=== PATIENT | female | born 2005 | race Two or more races ===

== ENCOUNTER 2025-09-15 05:25 | Emergency (ER) | payer MEDICAID, SELFPAY ==
[2025-09-15 05:26] VITALS: BMI 28.3
--- NOTE | 2025-09-15 05:32 | PD.EDRME ---
Rapid Medical Screening Exam RME Arrival date/time: 09/15/25 05:25 Chief Complaint: Abdominal Pain RME Narrative: Vaginal spotting, pelvic cramping that initiated yesterday. LMP end of June. Exam: Well-appearing, no acute distress, abdomen non-tender Clinical Impression: Vaginal bleeding in
[2025-09-15 05:36] VITALS: BP 122/83; PULSE 79; RESP 16; TEMP 36.7; O2SAT 98
[2025-09-15 06:15] LABS: Collection Type, Urine Clean Catch
[2025-09-15 06:22] LABS: Basophils # (Auto) 0.0 Thou/mm3 (0.0-0.2); Basophils % (Auto) 1 % (0-2.5); Eosinophils # (Auto) 0.1 Thou/mm3 (0.0-0.5); Eosinophils % (Auto) 2 % (0-10); Hematocrit 32.4 % (36.0-46.0); Hemoglobin 10.8 g/dL (12.0-16.0); Immature Granulocytes Auto 0.01 Thou/mm3 (0.00-0.00); Lymphocytes # (Auto) 2.6 Thou/mm3 (1.0-4.8); Lymphocytes % (Auto) 38 % (10-50); Mean Corpuscular HGB Conc 33.3 g/dl (31.0-37.0); Mean Corpuscular Hemoglobin 28.6 pg (25.0-35.0); Mean Corpuscular Volume 86 fL (80-100); Monocytes # (Auto) 0.6 Thou/mm3 (0.0-0.8); Monocytes % (Auto) 9 % (0-12); Neutrophils # (Auto) 3.5 Thou/mm3 (1.8-7.7); Neutrophils % (Auto) 51 % (37-80); Nucleated Red Blood Cell # 0.00 Thou/mm3 (0.00-0.00); Nucleated Red Blood Cell % 0 /100 WBC (0); Platelet Count 270 Thou/mm3 (140-440); RDW Standard Deviation 41.5 fL (36.4-46.3); Red Blood Count 3.77 Miln/mm3 (4.00-5.20); White Blood Count 6.9 Thou/mm3 (3.6-11.0)
[2025-09-15 06:24] LABS: Bilirubin,Urine Negative (Negative); Blood,Urine Trace (Negative); Clarity,Urine Clear (Clear/Hazy); Color,Urine Lt-Yellow (Lt Yel-Yel); Glucose, Urine Negative (Negative); Ketones,Urine Negative (Negative); Leukocyte Esterase,Urine Negative (Negative); Nitrite,Urine Negative (Negative); PH,Urine 6.5 (5.0-7.0); Protein,Urine Negative (Neg - Trace); RBC,Urine 30 /hpf (0-3); Specific Gravity,Urine 1.023 (1.001-1.035); Squamous Epithelial Cell,Urine 1 /hpf (0-5); Urobilinogen,Urine Negative mg/dL (0.0-1.0); WBC,Urine 3 /hpf (0-5)
[2025-09-15 06:42] LABS: Alanine Aminotransferase 10 U/L (10-49); Albumin, Serum 4.3 gm/dL (3.5-5.0); Albumin/Globulin Ratio 1.7 (1.2-2.2); Alkaline Phosphatase 69 U/L (46-116); Anion Gap 8 (7-16); Aspartate Amino Transferase 14 U/L (0-34); BUN/Creatinine Ratio 12 Ratio (12-20); Bilirubin,Total 0.7 mg/dL (0.3-1.2); Blood Urea Nitrogen 7 mg/dL (9-23); Calcium 9.1 mg/dL (8.3-10.6); Calcium (Corrected) 9.1 mg/dL (8.5-10.1); Carbon Dioxide 24.0 mMol/L (20.0-31.0); Chloride 108 mMol/L (98-107); Creatinine (Component) 0.6 mg/dL (0.6-1.3); Estimated Creatinine Clearance 146.9 mL/min (>60); Globulin 2.5 gm/dL (2.3-3.5); Glucose 88 mg/dL (74-106); Osmolality,Calculated 276 (275-295); Potassium 4.2 mMol/L (3.4-5.1); Sodium 140 mMol/L (136-145); Total Protein 6.8 gm/dL (5.7-8.2); eGFR > 60 See Note
--- NOTE | 2025-09-15 07:37 | XR_ITS ---
Examination: Complete OB ultrasound, less than 14 weeks, transabdominal Date and time of exam: September 15, 2025, 0736 hours INDICATIONS: Pelvic cramping vaginal bleeding beginning 2 days ago, no care. Technique: Obstetrical ultrasound images less than 14 weeks performed via transabdominal imaging Findings: A normal shaped single intrauterine gestation is present in the uterus. CRL 0.6 cm corresponds to 6 weeks 3 days gestational age Cardiac motion 115 bpm Ultrasonographic survey of visible and placental structures unremarkable. Amniotic fluid volume appears appropriate for this estimated gestational age. Right ovary 3.8 cm arterial flow. Left ovary 2.1 cm arterial flow No fluid in the cul-de-sac IMPRESSION: Viable intrauterine gestation 6 weeks 3 days.
--- NOTE | 2025-09-15 08:03 | EDNOTE_ITS ---
<Statement entered by Jacki Minor MD - 09/19/25 16:25> As co-signing physician, I was present and available for consult prn. I concur with the plan and care as documented by the midlevel provider. ED Abdominal Pain RME/HPI General Chief Complaint: Abdominal Pain Stated complaint: POSITIVE TEST, CRAMPING Time seen by provider: 09/15/25 07:04 Arrival date/time: 09/15/25 05:25 20-year-old female G2, P1 presents to the emergency department today for complaint of vaginal spotting ongoing x 2 days patient worse no fever nausea vomiting no headache dizziness weakness. Limitations: no limitations RME / HPI RME / HPI narrative: Vaginal spotting, pelvic cramping that initiated yesterday. LMP end of June. Exam: Well-appearing, no acute distress, abdomen non-tender Impression: Vaginal bleeding in Related Data Previous Rx's ?Medication ?Instructions ?Recorded acetaminophen 500 mg tablet 500 mg PO Q6H PRN pain #30 tabs 03/06/21 (Tylenol Extra Strength) ondansetron 4 mg disintegrating 4 mg PO Q12H PRN nause a and 03/06/21 tablet vomiting #14 tabs ondansetron 4 mg disintegrating 4 mg PO Q12H #10 tabs 12/13/21 tablet pantoprazole 20 mg tablet,delayed 20 mg PO QDAY #14 ta bs 12/13/21 release (Protonix) hydrocodone 5 mg-acetaminophen 325 1 tab PO TID #10 ta bs 03/15/23 mg tablet Allergies Allergy/AdvReac Type Severity Reaction Status Date / Time No Known Allergies Allergy Verified 07/20/24 18:45 Review of Systems Review of Systems Systems Reviewed: All systems reviewed, normal except as documented Constitutional Constitutional: Reports system reviewed and no additional complaints, except as documented, Denies fever(s) and Denies headache(s) Eyes Eyes: Reports system reviewed and no additional complaints, except as documented and Denies blurry vision ENT Ears, Nose, Mouth, and Throat: Reports system reviewed and no additional complaints, except as documented, Denies headache(s), Denies nasal congestion and Denies nasal discharge Cardiovascular Cardiovascular: Reports system reviewed and no additional complaints, except as documented, Denies chest pain and Denies dyspnea Respiratory Respiratory: Reports system reviewed and no additional complaints, except as documented, Denies chest congestion, Denies cough and Denies dyspnea Gastrointestinal Gastrointestinal: Reports system reviewed and no additional complaints, except as documented and Denies abdominal pain Integumentary/Breasts Skin/Breast: Reports system reviewed and no additional complaints, except as documented and Denies rash Neurologic Neurologic: Reports system reviewed and no additional complaints, except as documented, Reports as per HPI and Denies headache(s) Past Medical History Past Medical History CARDIAC: Negative Congestive Heart Failure RESPIRATORY: Negative Chronic Obstructive Pulmonary Disease (COPD) GENITOURINARY: Negative Renal Disease ENDOCRINE: Negative Diabetes Mellitus Type 1 or Diabetes Mellitus Type 2 Family History FAMILY HISTORY: Negative Family Neurologic Problems, Family Psychiatric Problems, Family Respiratory Disorders, Family Cardiac Disorders, Family Gastrointestinal Problems, Family Cancer, Family Surgery or Family Anesthesia Reaction Social History SMOKING STATUS: Never smoker SUBSTANCE USE: does not use ED Exam General Limitations: Present no limitations General appearance: Present alert and in no apparent distress Head Head exam: Present atraumatic, normocephalic and normal inspection Eye Eye exam: Present normal appearance, PERRL and EOMI; Absent conjunctival injection ENT ENT exam: Present normal exam, normal oropharynx and mucous membranes moist Neck Neck exam: Present normal inspection, full ROM and trachea midline Chest Chest inspection: Present normal inspection and symmetric chest wall rise Respiratory Respiratory exam: Present normal lung sounds bilaterally Cardiovascular Cardiovascular exam: Present regular rate, normal rhythm and normal heart sounds Abdominal Exam Abdominal exam: Present soft and normal bowel sounds Extremities Exam Extremities exam: Present normal inspection and full ROM Back Exam Back exam: Present normal inspection and full ROM Neurological Exam Neurological exam: Present alert, oriented X3 and CN II-XII intact Psychiatric Psychiatric exam: Present normal affect and normal mood Skin Skin exam: Present warm, dry, intact and normal color Course Quality Measures none Orders Category Date Time Status US OB <= 14 weeks fetus Stat Exams 09/15/25 07:37 Completed Beta HCG,Quantitative Stat Lab 09/15/25 06:06 Completed CBC Stat Lab 09/15/25 06:06 Completed CMP [Comprehensive Metabolic Panel] Stat Lab 09/15/25 06:06 Completed UA [Urinalysis] Stat Lab 09/15/25 05:44 Completed Vital Signs Vital signs: Vital Signs Temperature 98.1 F 09/15/25 05:36 Pulse Rate 79 09/15/25 05:36 Respiratory Rate 16 09/15/25 05:36 Blood Pressure 122/83 09/15/25 05:36 Pulse Oximetry (%) 98 09/15/25 05:36 Oxygen Delivery Method Room Air 09/15/25 05:36 o2 sat 98% r.a wnl Abdominal Pain MDM MDM Narrative MDM Narrative:: 20-year-old female G2, P1 presents to the emergency department today for complaint of vaginal spotting ongoing x 2 days patient worse no fever nausea vomiting no headache dizziness weakness. On exam patient (patient does not appear ill or toxic no distress Lab work and imaging obtained no acute emergent findings noted Lab work and imaging both consistent with viable at this time Patient struck to follow-up with FIELD EVIDENCE TECHNICIAN soon as possible for worsening symptoms or concerns to return immediately Patient data External records reviewed:: [facility] previous records Clinical information provided by:: patient Social determinants that could affect healthcare access:: none Patient has the following chronic illnesses:: None How is presenting disease/condition affected by chronic disease/condition?: no chronic disease Evaluation data The following diagnostics were reviewed and interpreted by me:: lab results and radiology exam(s) Lab and/or radiology exams considered but not ordered:: Labs radiology obtained Interpretation Summary: Reviewed by me Medications / Prescriptions Medications or Prescriptions considered but not ordered:: Given Medication administrations:: Given Consultations Consultation(s) initiated? (list below): No Diagnosis Differential diagnosis abdominal pain: abdominal pain, pancreatitis and small bowel obstruction Most likely diagnosis given after review of the tests above:: Threatened Admission Indicated Admission indicated?: not indicated Admission Request Was there a request for admission?: No Disposition Plan Disposition Plan: Discharge Discharge Attestation Discharge Attestation: The patient and all family members were given an opportunity to ask questions and understood the discharge instructions. Discharge instructions specifically effects, indications for sooner follow up or return to the emergency department, and the expected course of current diagnosis. Patient condition: Stable Discharge Plan Plan Patient Disposition: HOME (Self Care) Discharge Disposition comment: Stable Prescriptions/Referrals Prescriptions/Med Rec: No Action ondansetron 4 mg tablet,disintegrating 4 mg PO Q12H Qty: 10 0RF pantoprazole [Protonix] 20 mg tablet,delayed release (DR/EC) 20 mg PO QDAY Qty: 14 0RF acetaminophen [Tylenol Extra Strength] 500 mg tablet 500 mg PO Q6H PRN (Reason: pain) Qty: 30 0RF ondansetron 4 mg tablet,disintegrating 4 mg PO Q12H PRN (Reason: nausea and vomiting) Qty: 14 0RF hydrocodone-acetaminophen 5-325 mg tablet 1 tab PO TID MDD 3 Qty: 10 0RF Rx Instructions: Please take caution with while taking this medication. Problem List Clinical Impression: Vaginal bleeding affecting early Patient/Caregiver Discharge Instructions Education Materials: Bleeding During Early Additional Instructions: Please follow-up with FIELD EVIDENCE TECHNICIAN as discussed worsening symptoms return immediately Print Language: Ukrainian Stand Alone Forms: Elizabet Award Info., Work/School Release, Patient Portal Info Letter PA/[employer] Supervising Physician PA/[employer] Supervising Physician: Dr. Minor
== END 2025-09-15 08:15 | disposition home or self-care (01) ==
PROVIDERS: Physician Assistant; Emergency Provider Emergency Medicine
DX: O20.0 Threatened abortion (principal)
CPT/HCPCS: 36415; 76801; 80053; 81001; 84702; 85025; 99283

== ENCOUNTER 2025-10-05 13:11 | Outpatient (AMB) | payer MEDICAID, SELFPAY ==
[2025-10-05 13:39] VITALS: BP 119/73; PULSE 71; RESP 14; TEMP 36.9; O2SAT 98; BMI 27.8
--- NOTE | 2025-10-05 13:39 | AMB.OBINITIA ---
Vital Signs 10/05/25 13:39 Height 1.63 m Height Method Stated Weight 74.106 kg Weight Measurement Method Standing Scale BMI 27.8 BP 119/73 Blood Pressure Source Automatic Cuff Blood Pressure Location Left Upper Arm Position Sitting Respiration 14 Pulse 71 Pulse Source Monitor Temp 98.5 F Temp Source Oral Pulse Oximetry (%) 98 Oxygen Delivery Method Room Air Allergies/Home Meds Allergies & Medications Allergies No Known Allergies Allergy (Verified 10/05/25 13:39) Medication Reconciliation ondansetron 4 mg disintegrating tablet 4 mg PO Q12H #10 tabs 12/13/21 [Rx Confirmed 10/05/25] ondansetron HCl 4 mg tablet 4 mg PO Q8H PRN nausea and vomiting #30 tabs 10/05/25 [Rx] vitamins 30 30 mg iron-10 mg iron-folic acid 1 mg-om3 capsule cap PO 10/05/25 [History Confirmed 10/05/25] Intake Visit Data Collection New Patient or Established: Established Patient (seen at [facility] within 3 years) Reason for Visit:: INITIAL CARE Seen by Clinical Staff ONLY (RN/MA): No Telecommunications Network Engineer Required: No Do You Feel Safe at Home: Yes Authorities Contacted: N/A PCP or OBGYN visit in last 3 months: Yes Hx Now: Yes Are you currently on any form of Control: No Last menstrual period: 06/30/25 Pain Present Currently: No Pain Scale Used: Allred-Waller/Numerical Pain scale:: 0 Smoking Status Smoking Status: Never smoker Immunizations Flu Vaccine in the Last 12 Months: No Flu Vaccine Exclusion Criteria: Refused by Patient Questionnaires Covid-19 Vaccine Questionnaire Has patient been vacinated for Covid-19 Have you been vacinated for Covid-19: No PHQ-9 PHQ-2 Over the last 2 weeks, how often have you been bothered by any of the following problems? 1. Little interest or pleasure in doing things: not at all 2. Feeling down, depressed, or hopeless: not at all Total score: 0 PHQ-9 3. Trouble falling or staying asleep, or sleeping too much: Not at all 4. Feeling tired or having little energy: Not at all 5. Poor appetite or overeating: Not at all 6. Feeling bad about yourself - or that you are a failure or have let yourself or your family down: Not at all 7. Trouble concentrating on things, such as reading the newspaper or watching television: Not at all 8. Moving or speaking so slowly that other people could have noticed? - Or the opposite - being so fidgety or restless that you have been moving around a lot more than usual: not at all 9. Thoughts that you would be better off or of hurting yourself in some way: Not at all Total score: 0 Source: Developed by Drs. Everett Nathan, Torrie Sam, Anthony Kay and colleagues, with an educational kimberly from [employer] Depression screen completed yes Social History Living Situation History Marital Status: Lives With: Family Housing: House Tobacco History Smoking Status: Never smoker Second Hand Smoke Exposure: No Alcohol History Alcohol Intake: Former Alcohol Intake Frequency: holidays/special occasions only Domestic Abuse History Do You Feel Safe at Home: Yes History of Present Illness HPI Narrative 20-year-old 2 para 1 for OBI. Patient's last menstrual period June 30, 2025. This gave a due date April 06, 2025. Patient had an ER visit September. It was September 15, 2025. Ultrasound showed 6-week and 3. So this gives EDC of May 08, 2025. Patient's first was uncomplicated. Denies any chronic illness. No surgeries. She does have a history of positive THC. Her last use was in June. And she had a history of having 2 beers when she found out she was . Partner supportive. She has increased nausea and would like to medication for that. Denies any bleeding or cramping at this time. 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 She has her first menstrual period June 30, 2025. By dates she was due April 06, 2025. Patient had an ultrasound September 15 and this changed to EDC to May 08, 2026 patient was 6 weeks 3 on that date. No bleeding no leaking no cramps today OBI today. Schedule [facility] Discussed SAB precautions. Zofran 4 mg p.o. Q8 as needed for nausea and vomiting and comfort measures. OB panel today with NIPT and carrier screening return in 4 weeks OB check Menstrual History Menstrual reliability: definite Flow: normal Menstrual regularity: regular Monthly: Yes Age at menarche: 9 On control pills at conception: No Associated symptoms (LMP): Reports nausea and breast tenderness OB History : 2 Para: 1 # of Living Children: 1 Delivery History 1st : Child's name: IRMA date: 10/08/22 sex: male Gestational age at delivery (weeks): 40 Delivery type: vaginal weight (lbs): 3175.147 g Delivery complications: NONE History of depression before or after : No Infection History & Risk Evaluation History of STDs: none Genetic Screening & History Genetic Screening/Teratology Counseling - Includes patient, baby's father, or anyone in either family with: 1. Patient's age 35 years or older as of estimated date of delivery: No 2. Thalassemia (Bangladeshi, Estonian, Mediterranean, or Background); MCV less than 80: No 3. Neural Tube Defect (Meningomyelocele, Spina Bifida, or Anencephaly): No 4. Congenital Heart Defect: No 5. Down Syndrome: No 6. Joce-Sachs (Ashkenazi Religion, Cajun, Slovak Malaysian): No 7. Jabari Disease (Ashkenazi Religion): No 8. Familial Dysautonomia (Ashkenazi Religion): No 9. Sickle Cell Disease or Trait (): No 10. Hemophilia or other blood disorders: No 11. Muscular Dystrophy: No 12. Cystic Fibrosis: No 13. Bill's Chorea: No 14. Mental Retardation/Autism: No 15. Other inherited genetic or chromosomal disorder: No 16. Maternal Metabolic Disorder (EG,TYPE 1 Diabetes, PKU): No 17. Patient or baby's father had a child with defects not listed above: No 18. Recurrent loss or a stillbirth: No 19. Medications (including supplements, vitamins, herbs or otc drugs)/illicit/recreational drugs/alcohol since last menstrual period: No 20. Any other: No Infection History 1. Live with someone with TB or exposed to TB: No 2. Rash or viral illness since last menstrual period: No 3. Hepatitis B,C: No Other (see comments) Source: [employer] Review of Systems Review of Systems Systems Reviewed: All systems reviewed, normal except as documented Gastrointestinal Gastrointestinal: Reports nausea Exam General Limitations: no limitations General Appearance: alert, in no apparent distress, comfortable, cooperative, healthy appearing, well developed and well groomed Head Head exam: atraumatic, normocephalic and normal inspection ENT ENT exam: Present normal exam, normal oropharynx and mucous membranes moist Neck Neck exam: Present normal inspection, full ROM and trachea midline Chest Chest inspection: Present normal inspection and symmetric chest wall rise Resp Respiratory exam: Present normal lung sounds bilaterally Card Cardiovascular exam: Present regular rate, normal rhythm and normal heart sounds Psych Psychiatric exam: Present normal affect and normal mood Office Procedures OBC Clinic LOC & Office Proc's Nursing/Assessment Patient Status: Established Patient OB Clinic Nursing Assessment: Medication Reconciliation, Update PMH in EMR and Vital Signs OB Clinic Coordination of Care: Complex Care and Chronic Disease 1-5, Consent,records obtained, informed consent, Education Simp Pt/Fam, 1 Ins Authorization, Lab and Imaging orders, Results/Orders obtained and Staff clarify orders Special Needs: Heart tones Established Patient Charge Established Patient Point Assignment: 150 Established Patient Point Charge: EP Level 4 (120-155) Assessment & Plan Diagnosis / Problem List (1) Encounter for supervision of high risk in first trimester, antepartum: Status: Acute Plan OB panel today. NIPT and carrier screen on Saturday. Discussed SAB precautions. Schedule with MFM for NT scan. Comfort measures for nausea and vomiting. Gave her Zofran 4 mg to take every 8 return in 4 weeks OB check Additional Plan Follow Up: 4 Weeks (obc)
== END 2025-10-05 13:56 | disposition home or self-care (01) ==
LOC: HODSOBC 13:11
PROVIDERS: Supervising Provider Advanced Practice Midwife; Visit Provider Advanced Practice Midwife
DX: O09.891 Supervision of other high risk pregnancies, first trimester (principal); O21.9 Vomiting of pregnancy, unspecified; Z28.21 Immunization not carried out because of patient refusal; Z3A.09 9 weeks gestation of pregnancy
CPT/HCPCS: 99214; G0463

== ENCOUNTER 2025-10-26 08:33 | Outpatient (AMB) | payer MEDICAID, SELFPAY ==
--- NOTE | 2025-10-26 08:39 | OBCLNT_ITS ---
Vital Signs 10/26/25 08:42 Height 1.63 m Height Method Stated Weight 71.894 kg Weight Measurement Method Standing Scale BMI 27.0 BP 117/74 Blood Pressure Source Automatic Cuff Blood Pressure Location Left Upper Arm Position Sitting Respiration 18 Pulse 74 Pulse Source Monitor Temp 97.8 F Temp Source Oral Pulse Oximetry (%) 98 Oxygen Delivery Method Room Air Allergies/Home Meds Allergies & Medications Allergies No Known Allergies Allergy (Verified 10/26/25 08:39) Medication Reconciliation ondansetron 4 mg disintegrating tablet 4 mg PO Q12H #10 tabs 12/13/21 [Rx Confirmed 10/26/25] ondansetron HCl 4 mg tablet 4 mg PO Q8H PRN nausea and vomiting #30 tabs 10/05/25 [Rx Confirmed 10/26/25] vitamins 30 30 mg iron-10 mg iron-folic acid 1 mg-om3 capsule cap PO 10/05/25 [History Confirmed 10/26/25] Immunizations Immunizations Flu Vaccine in the Last 12 Months: No Flu Vaccine Exclusion Criteria: No Exclusion Criteria Care OB Visit Log OB Flowsheet Initial Weight: Not Recorded Date -?-?-?-?-?-?-?-?-?-?-?-?- EGA Weight BP Alb Glu CTX Pres Fundal ht FHR Mov Dilation Station Effacement Hx Notes Visit Note 10/05/25 -?-?-?-?-?-?-?-?-?-?-?-?- 9w 2d 74.106 kg 119/73 absent unknown 10 156 absent 20-year-old 2 para 1 for OBI. She has her first menstrual period June 30, 2025. By dates she was due April 06, 2025. Patient had an ultrasound September 15 and this changed to EDC to May 08, 2026 patient was 6 weeks 3 on that date. No bleeding no leaking no cramps today OBI get burr Schedule MFM at [facility] Discussed SAB precautions. Zofran 4 mg p.o. Q8 as needed for nausea and vomiting and comfort measures. OB panel today with NIPT and carrier screening return in 4 weeks OB check 10/26/25 -?-?-?-?-?-?-?-?-?-?-?-?- 12w 2d 71.894 kg 117/74 absent unknown 12 145 absent Complains of lower back pain. 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 Denies leaking, bleeding. She has some cramps. NIPT, OB panel still pending. Patient was scheduled for anatomy scan at [facility] and that is still pending as well. Did not discussed SAB precautions. No heavy lifting. Comfort measures for back pain. Excuse me and return 4 weeks OB check VIKA Calculator Estimated Delivery Date Method Current WG Current Estimate 05/08/26 Ultrasound #1 12w 2d Other Estimates 04/06/26 LMP (Uncertain) 16w 6d 05/08/26 Manual 12w 2d Office Procedures OBC Clinic LOC & Office Proc's Nursing/Assessment Patient Status: Established Patient OB Clinic Nursing Assessment: Medication Reconciliation, Update PMH in EMR and Vital Signs OB Clinic Coordination of Care: Consent,records obtained, informed consent, Education Simp Pt/Fam, Lab and Imaging orders, Results/Orders obtained and Staff clarify orders Special Needs: Heart tones Established Patient Charge Established Patient Point Assignment: 110 Established Patient Point Charge: EP Level 3 (80-115) Assessment & Plan Diagnosis / Problem List (1) Encounter for supervision of high risk in first trimester, antepartum: Status: Acute Plan OB panel, NIPT pending. Comfort measures for back pain and [id number] meds for back pain as well. Discussed ER precautions. Increase rest. No heavy lifting. Return in 4 weeks OB check Additional Plan Follow Up: 4 Weeks (obc)
[2025-10-26 08:42] VITALS: BP 117/74; PULSE 74; RESP 18; TEMP 36.6; O2SAT 98; BMI 27.0
== END 2025-10-26 09:34 | disposition home or self-care (01) ==
LOC: HODSOBC 08:33
PROVIDERS: Supervising Provider Advanced Practice Midwife; Visit Provider Advanced Practice Midwife
DX: O09.891 Supervision of other high risk pregnancies, first trimester (principal); O99.891 Other specified diseases and conditions complicating pregnancy; M54.50 Low back pain, unspecified; Z3A.12 12 weeks gestation of pregnancy
CPT/HCPCS: 99213; G0463

== ENCOUNTER 2025-11-09 13:14 | Outpatient (AMB) | payer MEDICAID, SELFPAY ==
[2025-11-09 13:41] VITALS: BP 114/78; PULSE 77; RESP 16; TEMP 36.7; O2SAT 98; BMI 26.9
--- NOTE | 2025-11-09 13:41 | OBCLNT_ITS ---
Vital Signs 11/09/25 13:41 Height 1.63 m Height Method Stated Weight 71.384 kg Weight Measurement Method Standing Scale BMI 26.9 BP 114/78 Blood Pressure Source Automatic Cuff Blood Pressure Location Left Upper Arm Position Sitting Respiration 16 Pulse 77 Pulse Source Monitor Temp 98.1 F Temp Source Oral Pulse Oximetry (%) 98 Oxygen Delivery Method Room Air Allergies/Home Meds Allergies & Medications Allergies No Known Allergies Allergy (Verified 11/09/25 13:42) Medication Reconciliation ondansetron 4 mg disintegrating tablet 4 mg PO Q12H #10 tabs 12/13/21 [Rx Confirmed 11/09/25] ondansetron HCl 4 mg tablet 4 mg PO Q8H PRN nausea and vomiting #30 tabs 10/05/25 [Rx Confirmed 11/09/25] vitamins 30 30 mg iron-10 mg iron-folic acid 1 mg-om3 capsule cap PO 10/05/25 [History Confirmed 11/09/25] Immunizations Immunizations Flu Vaccine in the Last 12 Months: No Flu Vaccine Exclusion Criteria: Already Received Care OB Visit Log OB Flowsheet Initial Weight: Not Recorded Date -?-?-?-?-?-?-?-?-?-?-?-?- EGA Weight BP Alb Glu CTX Pres Fundal ht FHR Mov Dilation Station Effacement Hx Notes Visit Note 10/05/25 -?-?-?-?-?-?-?-?-?-?-?-?- 9w 2d 74.106 kg 119/73 absent unknown 10 156 absent 20-year-old 2 para 1 for OBI. She has her first menstrual period June 30, 2025. By dates she was due April 06, 2025. Patient had an ultrasound September 15 and this changed to EDC to May 08, 2026 patient was 6 weeks 3 on that date. No bleeding no leaking no cramps today OBI get burr Schedule [facility] at [facility] Discussed SAB precautions. Zofran 4 mg p.o. Q8 as needed for nausea and vomiting and comfort measures. OB panel today with NIPT and carrier screening return in 4 weeks OB check 10/26/25 -?-?-?-?-?-?-?-?-?-?-?-?- 12w 2d 71.894 kg 117/74 absent unknown 12 145 absent Complains of lower back pain. 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 Denies leaking, bleeding. She has some cramps. NIPT, OB panel still pending. Patient was scheduled for anatomy scan at [facility] and that is still pending as well. Did not discussed SAB precautions. No heavy lifting. Comfort measures for back pain. Excuse me and return 4 weeks OB check 11/09/25 -?-?-?-?-?-?-?-?-?-?-?-?- 14w 2d 71.384 kg 114/78 absent unknown 14 156 absent Denies leaking, no bleeding. No contractions. Light movement Discussed labs. Patient has OB sono scheduled for December 13. Discussed SAB precautions. Return in 3 weeks OB check and AFP VIKA Calculator Estimated Delivery Date Method Current WG Current Estimate 05/08/26 Ultrasound #1 14w 2d Other Estimates 04/06/26 LMP (Uncertain) 18w 6d 05/08/26 Manual 14w 2d Notes Visit Date: 11/09/25 Last Updated by: Stacy Tian, RAJINDER A+, ABS negative, rubella nonimmune, hepatitis B negative, HCV negative, RPR nonreactive. HIV is negative. GC and Chlamydia negative.36/11.8, nipt- /male, CF-,SMA- Office Procedures OBC Clinic LOC & Office Proc's Nursing/Assessment Patient Status: Established Patient OB Clinic Nursing Assessment: Medication Reconciliation, Update PMH in EMR and Vital Signs OB Clinic Coordination of Care: Complex Care and Chronic Disease 1-5, Consent,records obtained, informed consent, Education Simp Pt/Fam, 1 Ins Authorization, Lab and Imaging orders, Results/Orders obtained and Staff clarify orders Special Needs: Heart tones Established Patient Charge Established Patient Point Assignment: 150 Established Patient Point Charge: EP Level 4 (120-155) Assessment & Plan Diagnosis / Problem List (1) Encounter for supervision of high risk in first trimester, antepartum: Status: Acute Plan Discussed SAB precautions. Discussed labs. M ultrasound for December 13. Return in 3 weeks and AFP Additional Plan Follow Up: 3 Weeks (obc)
== END 2025-11-09 14:11 | disposition home or self-care (01) ==
PROVIDERS: Supervising Provider Advanced Practice Midwife; Visit Provider Advanced Practice Midwife
DX: O09.92 Supervision of high risk pregnancy, unspecified, second trimester (principal); Z3A.14 14 weeks gestation of pregnancy
CPT/HCPCS: 99214; G0463